=== PATIENT | male | born 1945 | race Caucasian/White ===

== ENCOUNTER 2023-11-11 12:59 | Outpatient (RCR) | payer MEDICARE, SELFPAY ==
[2023-10-14 14:44] VITALS: BP 141/71
[2023-10-14] MEDS: NUCALA 1 MG SC (14:50)
[2023-11-11 13:31] VITALS: BP 141/69
[2023-11-11] MEDS: NUCALA 1 MG SC (13:38)
== END 2023-11-12 23:59 | disposition home or self-care (01) ==
LOC: OID 12:59
PROVIDERS: ATTENDING PHYSICIAN Internal Medicine Critical Care Medicine; FAMILY PHYSICIAN Student in an Organized Health Care Education/Training Program
DX: J45.40 Moderate persistent asthma, uncomplicated (principal); J45.901 Unspecified asthma with (acute) exacerbation; J94.2 Hemothorax; R06.02 Shortness of breath; J98.4 Other disorders of lung; J44.9 Chronic obstructive pulmonary disease, unspecified; R76.8 Other specified abnormal immunological findings in serum
CPT/HCPCS: 96372; J2182

== ENCOUNTER 2023-12-09 12:56 | Outpatient (RCR) | payer MEDICARE, SELFPAY ==
[2023-12-09 13:00] VITALS: BP 135/69
[2023-12-09] MEDS: NUCALA 1 MG SC (13:18)
== END 2023-12-10 09:41 | disposition home or self-care (01) ==
LOC: OID 12:56
PROVIDERS: ATTENDING PHYSICIAN Internal Medicine Critical Care Medicine; FAMILY PHYSICIAN Student in an Organized Health Care Education/Training Program
DX: J45.40 Moderate persistent asthma, uncomplicated (principal)
CPT/HCPCS: 96372; J2182

== ENCOUNTER → 2023-12-19 12:29 | Outpatient (REF) | payer MEDICARE, SELFPAY | LOC: RAD 12:29 | PROVIDERS: ATTENDING PHYSICIAN Internal Medicine Hematology & Oncology; FAMILY PHYSICIAN Student in an Organized Health Care Education/Training Program | DX: D69.6 Thrombocytopenia, unspecified (principal); D72.819 Decreased white blood cell count, unspecified | CPT/HCPCS: 71046 ==

== ENCOUNTER 2024-01-06 12:52 | Outpatient (RCR) | payer MEDICARE, SELFPAY ==
[2024-01-06 12:58] VITALS: BP 136/72
[2024-01-06] MEDS: NUCALA 1 MG SC (13:25)
== END 2024-01-07 09:07 | disposition home or self-care (01) ==
LOC: OID 12:52
PROVIDERS: ATTENDING PHYSICIAN Internal Medicine Critical Care Medicine; FAMILY PHYSICIAN Student in an Organized Health Care Education/Training Program
DX: J45.40 Moderate persistent asthma, uncomplicated (principal)
CPT/HCPCS: 96372; J2182

== ENCOUNTER 2024-01-09 15:14 | Inpatient (IN) | payer MEDICARE, SELFPAY ==
[2024-01-09] VITALS (9 sets, daily range): BP systolic 125–158; BP diastolic 65–86; BMI 30.4; BMI 29.5
--- NOTE | 2024-01-09 11:11 | ED.GENMED ---
History of Present Illness
General
Chief Complaint: Rectal Bleeding
Time Seen by Provider: 01/09/24 10:57
Travel History
Have you had any contact with someone who has COVID-19?: No
Do you have any symptoms of coronavirus? Fever > 100 degrees, chills, cough, shortness of breath, sore throat, loss of taste or smell, muscle aches, or headache?: No
History of Present Illness
History of Present Illness:
78-year-old male with history of prior traumatic brain injury and chronic thrombocytopenia presents to the emergency department for evaluation of black-tinged emesis as well as black stool noted yesterday. notes that he had upper respiratory
tract symptoms approximate 2 weeks ago and was placed on a longer course of prednisone that was completed 1 week ago. Last night began vomiting and she noted black discoloration and several bouts. He also had black stool. After the bout of black
diarrhea he was given a single dose of Pepto-Bismol but did not continue with this morning. Patient denies any abdominal pain or fevers. Does not take any anticoagulants. Follows with oncology for borderline thrombocytopenia
Review of Systems
Review of Systems
Allergies reviewed?: Yes
All Other Systems: ROS reviewed and negative except as documented in HPI and ROS
Phy Exam
Physical Exam
Physical Exam:
GEN: Well appearing, NAD, WDWN
HEENT: Oral mucosa moist, no scleral icterus
Cardiac: Regular rate and rhythm, no murmurs
Lung: No respiratory distress, no tachypnea, lungs clear to auscultation bilaterally
Abdomen: Soft, nontender
Rectal: Brown stool in the rectal vault, heme positive
MSK: No gross deformity or injuries
Skin: Good color, no pallor or jaundice, no rashes
Neuro: AO x3, moves all extremities freely
Psych: Calm, cooperative
Course
Orders/Labs/Results
Orders:
Orders
01/09/24 11:26
Type+Screen Urgent
Complete Blood Count/With Diff Urgent
Comprehensive Metabolic Panel Urgent
Prothrombin Time Urgent
01/09/24 12:16
Pantoprazole [Protonix IV] 80 mg IV NOW STA
01/09/24 14:42
CR Abdomen - 2 Views Routine
Comment:
Reason For Exam: vomiting
01/09/24 14:55
Admit/Transfer Patient As Directed
Co-Sign Provider:
Level of Care: Inpatient admission
Assign to:: Telemetry
Physician / Group: Ghulam Foley
Diagnosis: Lower GI Bleed
Reason for Telemetry: Other
Other Reason for Telemetry: GI Bleed
Date to Stop Telemetry: 01/11/24
Time to Stop Telemetry: 11:00
Reason for Hospitalization: As above
Expected length of stay greater than two midnights?: Yes
ELOS- Estimated Length of Stay in days: 3
I certify the patient meets the requirements for IP care: Yes
01/09/24 14:58
Code Status As Directed
Resuscitation Status: Full Code
01/09/24 20:00
Pantoprazole [Protonix IV] 40 mg IV BID
01/11/24 11:00
DC Protocol for Telemetry ONCE
Abnormal Lab Results
01/09/24
11:26
RBC 4.12 L 10^6/uL
(4.70-6.10)
MCV 98.8 H fL
(80.0-94.0)
MCH 33.0 H pg
(27.0-31.0)
Plt Count 80 L 10^3/uL
(130-400)
MPV 11.6 H fL
(7.4-10.4)
Absolute Neuts (auto) 8.0 H 10^3/uL
(1.4-6.5)
Absolute Lymphs (auto) 0.1 L 10^3/uL
(1.2-3.4)
Neutrophils % 92.8 H %
(42.2-75.2)
Lymphocytes % 1.5 L %
(20.5-51.1)
PT 17.0 H Sec
(11.4-14.6)
Sodium 133 L mmol/L
(135-145)
BUN 37 H mg/dl
(9-20)
Creatinine 1.5 H mg/dL
(0.7-1.3)
Glucose 134 H mg/dl
(70-99)
Total Bilirubin 1.5 H mg/dl
(0.2-1.3)
01/09/24 11:26
01/09/24 11:26
Vital Signs
Initial and Last Documented VS:
Initial Vital Signs
Temp Pulse Resp BP Pulse Ox
97.7 F 87 18 134/84 95
01/09/24 10:33 01/09/24 10:33 01/09/24 10:33 01/09/24 10:33 01/09/24 10:33
Last Documented Vital Signs
Temp Pulse Resp BP Pulse Ox
97.7 F 76 20 144/68 94
01/09/24 10:33 01/09/24 14:15 01/09/24 14:15 01/09/24 14:00 01/09/24 14:15
MDM/Problems Addressed
MDM/Problems Addressed:
Hematemesis and melanotic stool likely on the basis of upper GI bleed, potentially gastritis/peptic ulcer disease provoked by recent prednisone usage. He appears quite clinically stable. Hemoglobin is unremarkable. Given his chronic
thrombocytopenia he is high risk for worsening bleeding if he were to be discharged thus we will admit on PPIs for close monitoring and potential GI intervention
*Critical Care Note
Total Time (30-74mins, 75-104mins- exclusive of procedures): Not Applicable
ED Attending Note
-
Portions of this chart may have been created with voice recognition software.� Occasional wrong word or��sound alike� substitutions may have occurred due to the inherent limitations of voice recognition software.
Discharge Plan
Departure
Patient Disposition: Admit
Date of Disposition: 01/09/24
Time of Disposition: 12:53
Admit to: Med/Surg
Presentation/result/management discussed w/ accepting MD/DO: Hospitalist
Discharge Problem:
Acute upper gastrointestinal bleeding, Thrombocytopenia
Interventions
Interventions:
*Risk Screen - Suicide Last Done: 01/09/24 10:33
*General Assessment Last Done: 01/09/24 10:33
*Neglect/Abuse Screening Last Done: 01/09/24 10:33
*ED COVID-19 Vaccine History Last Done: 01/09/24 11:21
VH-Lskgna-Zmmolhgeee Assessment Last Done: 01/09/24 11:24
ED- Cardiac Assessment Last Done: 01/09/24 11:24
ED- Pulmonary Assessment Last Done: 01/09/24 11:24
[2024-01-09 11:43] LABS: % Basophils 0.1 % (0-2); % Immature Granulocytes 0.3 % (0-0.5); % Lymphocytes 1.5 % (20.5-51.1); % Monocytes 5.3 % (1.7-9.3); % Neutrophils 92.8 % (42.2-75.2); Absolute Lymphocytes 0.1 10^3/uL (1.2-3.4); Absolute Monocytes 0.5 10^3/uL (0.1-0.6); Hematocrit 40.7 % (39.0-52.0); Hemoglobin 13.6 g/dL (13.0-18.0); Mean Corp Hgb Conc. 33.4 g/dL (33.0-37.0); Mean Corpuscular Volume 98.8 fL (80.0-94.0); Nucleated Red Blood Cells % 0 % (-); Red Blood Cell Count 4.12 10^6/uL (4.70-6.10); Red Cell Dist. Width 13.9 % (11.5-14.5); White Blood Cell Count 8.7 10^3/uL (4.8-10.8)
[2024-01-09 12:00] LABS: ALT (SGPT) 40 U/L (0-50); AST (SGOT) 35 U/L (17-59); Albumin 3.7 g/dl (3.5-5.0); Alkaline Phosphatase 99 U/L (38-126); Blood Urea Nitrogen 37 mg/dl (9-20); Calcium 8.8 mg/dl (8.4-10.2); Carbon Dioxide 22 mmol/L (22-30); Chloride 105 mmol/L (98-107); Estimated Creatinine Clearance 55 ml/min; Glucose 134 mg/dl (70-99); Potassium 4.1 mmol/L (3.5-5.1); Sodium 133 mmol/L (135-145); Total Bilirubin 1.5 mg/dl (0.2-1.3); Total Protein 6.6 g/dl (6.3-8.2); eGFR 47.95
[2024-01-09] MEDS: PROTONIX IV 80 MG IV (12:24)
[2024-01-09 12:29] LABS: Mean Platelet Volume 11.6 fL (7.4-10.4); Platelet Count 80 10^3/uL (130-400)
--- NOTE | 2024-01-09 14:04 | CON.GI ---
Addendum entered and electronically signed by Shant Alcaraz MD 01/09/24 17:21:
I saw and examined the patient.
The REGISTRATION MANAGER or PA's note was reviewed and I agree with the note.
Comment:
Pt is a 78 y/o with a hx of asthma with recent antibx and prednisone with an episode of dark emesis and quesitonable melena. Currently no symptoms. No hx of egd and has been gettting cologuard last negative 2 yrs ago.
abd: soft, nontender
hgb normal
impression:
?gi bleeding
thrombocytopenia
pancreatic cyst
plan:
follow hgb
PPI
if diarrhea check c.diff
can have regular diet if tolerated
outpatient f/u imaging of small pancreatic cyst
Addendum entered and electronically signed by Liz Jorge NP 01/09/24 15:06:
Elevated INR and low platelets but with normal liver imaging in May. Does admit to 1 glass of wine daily with dinner. I do no suspect cirrhosis as his low platelets are chronic with prior normal imaging.
Original Note:
Consultation
-
Date/Time Consultation Requested: 01/09/24 @ 13:38
Date/Time Consultation Performed: 01/09/24 @ 14:15
Requesting Provider: Dr. Kyle White
Performing Provider: CLIFF Mcqueen; Dr. Shant Alcaraz
Reason for Consultation: UGI bleed
Medical History
Chief Complaint / HPI
Chief Complaint: melena, coffee ground emesis
History of Present Illness:
The pt is a 78 yo male with a PMH significant for chronic thrombocytopenia, cognitive impairment, mild asthma on Nucala, depression, who presents to the ER with complaints of melena and vomiting black emesis. We are being asked to evaluate for
concern for UGI bleed. The pt is somewhat of a poor historian therefore his is at the bedside to assist with HPI. She reports that her had developed acute onset of vomiting yesterday. She notes he had 2 episodes of very dark black
appearing emesis with chunks. She notes that the second episode as she has a white carpet appeared somewhat darker red in color. He had another episode this morning which prompted ER evaluation. He denies feeling sick prior to this onset. He
denies any significant abdominal pain or distention. He notes he did have some dark stool last week but otherwise denies any melena or hematochezia. His states that he told her he had dark stool yesterday but she did not visualize this
herself. His reports that prior to this onset he did have a ravioli's with red sauce and sausage that was left over. He denies any fevers or chills. He otherwise denies any unintentional weight loss, dysphagia, odynophagia, chest pain,
shortness of breath, lightheadedness, or dizziness. He does have mild asthma and is followed by pulmonary. His notes that about 2 weeks ago he had been having an ongoing cough and saw his primary care physician who had prescribed azithromycin
and a 5-day prednisone taper which he completed. He denies use of NSAIDs or blood thinners. He denies any recent travel. He denies any history of GI bleed. He does follow with hematology for a history of chronic thrombocytopenia. Workup
revealed a mildly enlarged spleen otherwise has been unrevealing as per oncology notes. He denies any family history of colon cancer or other GI cancers or disorders, but his reports that his brother may have had colon cancer. He denies any
prior EGD or colonoscopy. Routine labs in the ER showed hgb 13.6, plt 80,000, WBC 8.7, MCV 98.8, INR 1.4, Na 133, K 4.1, BUN 37, Cr 1.5, TB 1.5, AST 35, ALT 40, alk phos 99. CIERRA per ER records showed brown heme + stool. He was given 80 mg of IV
Protonix x 1 dose, made n.p.o., and admitted for further evaluation by GI.
Past Medical History
Past Medical History: Asthma, Psychiatric (Depression) and Other (chronic thrombocytopenia, cognitive impairment)
Past Surgical History: Orthopedic (Bilateral hip replacement), Urological (UroLift) and Other (Bilateral cataract surgery October and November 2023)
Social History
Tobacco: Non-Smoker
Alcohol: Daily (1 glass of wine with dinner most days)
Drug: None
Personal:
Living: With Family
Family History
Family History: Other (Brother with colon cancer)
Allergies / Home Medications
Allergy/AdvReac Type Severity Reaction Status Date / Time
No Known Allergies Allergy Verified 01/06/24 12:58
�Medication �Instructions �Recorded
albuterol sulfate 90 mcg/actuation 1 puff inhalation R Q4HPRN PRN sob 04/18/22
aerosol inhaler
escitalopram oxalate 20 mg tablet 20 mg PO DAILY Mental 04/18/22
Health/Anxiety
fexofenadine 180 mg tablet 180 mg PO DAILY PRN allergies 04/29/23
carboxymethylcellulose sodium 0.25 1 drp BOTH EYES DAILYPRN PRN dry 01/09/24
% eye drops (TheraTears) eyes
fluticasone furoate 100 1 inh inhalation R DAILY 01/09/24
mcg-vilanterol 25 mcg/dose Lung/Breathing Issues
inhalation powder (Breo Ellipta)
maltodextrin 1 ea PO DAILYPRN PRN constipation 01/09/24
mepolizumab 100 mg/mL subcutaneous 0 mg SC QMONTH ASTHMA 01/09/24
auto-injector (Nucala)
Review of Systems
-
History Source: Patient and Family
Constitutional: Reports No Symptoms
EENT: Reports No Symptoms
Respiratory: Reports Cough
Cardiac: Reports No Symptoms
Abdomen/GI: Reports Nausea, Vomiting, Black Stools and Other (Coffee-ground emesis)
: Reports No Symptoms
Musculoskeletal: Reports No Symptoms
Skin: Reports No Symptoms
Neurological: Reports No Symptoms
Vital Signs
Temp Pulse Resp BP Pulse Ox
97.7 F 75 18 151/71 95
01/09/24 10:33 01/09/24 13:30 01/09/24 13:30 01/09/24 13:00 01/09/24 13:30
Physical Exam
Exam
General: Well Developed, Well Nourished, No Apparent Distress and Comfortable
HEENT: Normocephalic, Anicteric and Atraumatic
Respiratory: Clear
Cardiac: S1/S2 and Regular Rhythm
Breast: N/A
GI: Soft, Non Tender, Non Distended, Normal Bowel Sounds and Other (Obese abdomen)
Rectal: Other (Brown heme positive stool per ER CIERRA)
Musculoskeletal: No Edema
Skin: Warm and Dry
Neuro: Awake, Alert and Other (Forgetful)
Psych: Calm
Results
WBC 8.7 10^3/uL (4.8-10.8) 01/09/24 11:26
Hgb 13.6 g/dL (13.0-18.0) 01/09/24 11:26
Hct 40.7 % (39.0-52.0) 01/09/24 11:26
MCV 98.8 fL (80.0-94.0) H 01/09/24 11:26
Plt Count 80 10^3/uL (130-400) L 01/09/24 11:26
Absolute Neuts (auto) 8.0 10^3/uL (1.4-6.5) H 01/09/24 11:26
PT 17.0 Sec (11.4-14.6) H 01/09/24 11:26
INR 1.40 01/09/24 11:26
Sodium 133 mmol/L (135-145) L 01/09/24 11:26
Potassium 4.1 mmol/L (3.5-5.1) 01/09/24 11:26
Chloride 105 mmol/L (98-107) 01/09/24 11:26
Carbon Dioxide 22 mmol/L (22-30) 01/09/24 11:26
BUN 37 mg/dl (9-20) H 01/09/24 11:
Creatinine 1.5 mg/dL (0.7-1.3) H 01/09/24 11:
Calcium 8.8 mg/dl (8.4-10.2) 01/09/24 11:
Total Bilirubin 1.5 mg/dl (0.2-1.3) H 01/09/24 11:
AST 35 U/L (17-59) 01/09/24 11:
ALT 40 U/L (0-50) 01/09/24 11:
Alkaline Phosphatase 99 U/L (38-126) 01/09/24 11:
Diagnostic Image Results:
05/2023 US abdomen: IMPRESSION: 'Mild splenomegaly without focal lesion. Mild fusiform aneurysmal dilatation of the infrarenal abdominal aorta measuring up to 3.5 cm. Subcentimeter cystic focus within the pancreatic body. No dilatation of the
pancreatic duct. This may represent a simple cyst versus side branch intraductal papillary mucinous neoplasm (IPMN). Consider follow-up CT or MRI in 6 months to year to assess for stability. Mildly increased renal cortical echogenicity is seen in
keeping with chronic renal disease. Small bilateral simple renal cysts.'
Prior GI Procedures:
EGD: none
Colonoscopy: none; Cologuard done in 2021 was negative
Assessment / Plan
-
The pt is a 78 yo male with a PMH significant for chronic thrombocytopenia, cognitive impairment, mild asthma on Nucala, depression, who presents to the ER with complaints of melena and vomiting black emesis. We are being asked to evaluate for
concern for UGI bleed. The patient is report acute onset of dark black appearing emesis along with questionable melena after recent steroid taper. He has a history of chronic thrombocytopenia being followed by hematology. Has no history of
GI bleed. No reported use of NSAIDs or blood thinners. No prior EGD or colonoscopy. Hemoglobin on admission was stable at 13.6, with platelets of 80,000 and mildly elevated INR 1.4. Currently with no active signs of bleeding. Stool brown heme
positive on digital rectal exam in the emergency room as per the emergency room attending. He was started on PPI. He has no complaints of pain.
Problem list:
-black emesis, ?melena
-Brown heme + stool
-macrocytosis
-chronic thrombocytopenia
-recent prednisone taper
-Family history of brother with colon cancer
Other pertinent medical history:
-mild asthma
-Cognitive impairment
-Depression
Recommendations:
-Etiology of coffee-ground emesis possibly secondary to upper GI bleed with recent prednisone taper versus gastritis versus constipation versus obstructive process versus other.
--- Rectal exam showing brown stool although heme positive No prior endoscopic evaluation.
-At this time we will check an x-ray of the abdomen to rule out any obstructive process or significant stool burden to explain symptoms
-To consider endoscopic evaluation with EGD inpatient versus outpatient pending clinical course. Currently is hemodynamically stable with a normal hemoglobin and no further vomiting. Will review with Dr. Alcaraz.
-Would continue twice daily PPI IV
-If x-ray is unrevealing and he has no further vomiting, can trial clear liquid diet
-Will repeat H&H and trend
-Avoid NSAIDs and blood thinning agent
-Trend platelets, he is being followed by hematology outpatient for this and workup
-He will need outpatient imaging in regards to his findings on ultrasound in May which did show a subcentimeter possible pancreatic cyst. I did advise the patient's to discuss this with the primary care physician who can order additional
imaging.
-Also with having a brother with colon cancer he should have a colonoscopy given his first-degree relative history despite negative Cologuard 2 years ago. Given his age and cognitive impairment, can discuss further as outpatient.
Data Reviewed
-
Old Records: Reviewed
-
-
Thank you for consultation and allowing me to participate in the patient's care. Please call the ammonium nitrate neutralizer GI physician during the after hours with any questions or concerns.
--- NOTE | 2024-01-09 14:44 | HPS.HSE ---
Addendum entered and electronically signed by Ghulam Foley MD 01/09/24 22:02:
Attending Addendum-
I performed a history and physical exam of the patient and discussed his management with the resident. I reviewed the resident's note and agree with the documented findings and plan of care. Patient present with small amount of hematemesis this am
and dark stools x 2 days. recently started on steroids for asthma exacerbation. patient seen with present. Full 12 point ROS reviewed and negative except as documented. GEN-NAD, Heart- RRR lungs clear abd soft LE no edema Shauna:
# Upper GI Bleed- start PPI BID, GI consult GB score-4, NPO, IVF cbc q 12 hours
# Hypovolemic Hyponatremia- start IVF repeat BMP in am
# CKD 3a- baseline cr @ 1.5, repeat BMP in am
# Chronic Thrombocytopenia- from nucala possibly, f/u Dr. Mtz as OP, repeat CBC in am
# Asthma- cont albuterol nebs prn
# Depression- cont meds
Time spent coordinating care, review of plan of care with resident, review of outside records, med rec, consults, notes, labs, rads, d/w nursing - 75 mins
Original Note:
Family Physician
-
Family Physician: France Osullivan MD
Chief Complaint
-
GI bleed
History of Present Illness
78-year-old male with a past medical history of prior traumatic brain injury, chronic thrombocytopenia, BPH, mild cognitive impairment presents to the emergency department complaining of melena and vomiting black emesis. Patient reports
blood-tinged emesis 2 nights ago. He had an episode this morning, hence decided to come into the ER for evaluation. Patient reports he has been having hiccups consistently for the past week before episode of emesis. Patient also reports bloody
diarrhea that started 2 days ago also. He reports episode of dark stools for a total of 4 times before presentation today. Yesterday he went to his local pharmacy to buy Pepto-Bismol for dark stools, but no improvement. He has had a total of 8
episodes since presentation. He denies abdominal pain, fever. He he notes that he symptoms of URI 2 weeks ago and saw his primary care provider 12/26 who placed him on a course of oral prednisone 2 tabs twice daily for a total of 5 days. He
completed the course of prednisone a week ago. He had a Cologuard stool test in February 2022, with no history of any colonic polyps. He denies any hospitalization in the past year, except cataract surgery done October 2023. He denies any sick
contacts, denies any changes to diet, he denies weight loss. He does not take NSAIDs or anticoagulants. The only change in medications over the past 1 month has been addition of prednisone. He reports this issue has not occurred in the past and
this is the first time.
Medical History
Past Medical History
Past Medical History: Reports Other (Chronic thrombocytopenia-he is following his oncologist for this, erectile dysfunction, elevated PSA, BPH with lower urinary tract symptoms, mild cognitive impairment, history of depression, CKD 3, asthma,
degenerative lumbar spinal stenosis, history of abdominal aortic aneurysm)
Past Surgical History: Reports Other (Cataract surgery 12/06, left hip replacement 04/19/2019, right hip replacement 05/09/2018)
Social History
Tobacco: Non-smoker
Alcohol: Occasional
Drug: None
Living: With Family
Employment: Retired
Family History
Family History: Not pertinent
Allergies / Home Medications
Allergies reflects when Allergies were last updated in [facility].
Home Medications with original date entered in [facility]
Allergy/Medication List:
Allergies
Allergy/AdvReac Type Severity Reaction Status Date / Time
No Known Allergies Allergy Verified 01/06/24 12:58
Home Medications
albuterol sulfate 90 mcg/actuation aerosol inhaler 1 puff inhalation R Q4HPRN PRN sob 04/18/22
escitalopram oxalate 20 mg tablet 20 mg PO DAILY Mental Health/Anxiety 04/18/22
fexofenadine 180 mg tablet 180 mg PO DAILY PRN allergies 04/29/23
carboxymethylcellulose sodium 0.25 % eye drops (TheraTears) 1 drp BOTH EYES DAILYPRN PRN dry eyes 01/09/24
fluticasone furoate 100 mcg-vilanterol 25 mcg/dose inhalation powder (Breo Ellipta) 1 inh inhalation R DAILY Lung/Breathing Issues 01/09/24
maltodextrin 1 ea PO DAILYPRN PRN constipation 01/09/24
mepolizumab 100 mg/mL subcutaneous auto-injector (Nucala) 0 mg SC QMONTH ASTHMA 01/09/24
Review of Systems
-
A 12 point ROS was completed and negative except as noted: Yes
Constitutional: Denies Fever or Weight Loss
Respiratory: Denies Cough or Trouble Breathing
Cardiac: Denies Chest Pain
Abdomen/GI: Reports Vomiting (Bloody), Bloody Stools and Black Stools; Denies Abdominal Pain or Nausea
: Reports No Symptoms
Musculoskeletal: Reports No Symptoms
Skin: Reports No Symptoms
Neurological: Reports No Symptoms
Endocrine: Reports No Symptoms
Hematologic/Lymphatic: Reports Bleeding
Psych: Reports No Symptoms
Physical Exam
Vital Signs
Vital Signs
Temp Pulse Resp BP Pulse Ox
97.7 F 76 20 144/68 94
01/09/24 10:33 01/09/24 14:15 01/09/24 14:15 01/09/24 14:00 01/09/24 14:15
Physical Exam
General: Well Developed and No Apparent Distress
HEENT: NormoCephalic and Anicteric
Respiratory: Clear; No Wheezes, Rales or Rhonchi
Cardiac: S1/S2 and Regular Rhythm; No Murmur
GI: Soft, Non Tender, Non Distended and Normal Bowel Sounds
Rectal: Hem Positive
Musculoskeletal: No Clubbing, No Cyanosis and No Edema
Skin: Warm
Neuro: Awake, Alert, Oriented and AO x 3
Psych: Calm
Laboratory Results
-
01/09/24 11:26
01/09/24 11:26
Laboratory Results
PT 17.0 Sec (11.4-14.6) H 01/09/24 11:26
INR 1.40 01/09/24 11:26
Total Bilirubin 1.5 mg/dl (0.2-1.3) H 01/09/24 11:
AST 35 U/L (17-59) 01/09/24 11:
ALT 40 U/L (0-50) 01/09/24 11:
Alkaline Phosphatase 99 U/L (38-126) 01/09/24 11:
Data Reviewed
-
Lab Data: Labs Reviewed by me and Discussed with Physician
Impression/Plan
-
Assessment
#Upper GI bleed possibly secondary to recent prednisone use
#Hypovolemic hyponatremia
#Thrombocytopenia
#History of asthma
#depression
#DINORAH on CKD
Plan
Upper GI bleed possibly secondary to recent prednisone use
Admitted to telemetry
Jeannine-Blatchford bleeding score 4.
Consult GI
Keep n.p.o.
PPI IV twice daily
Avoid NSAIDs on any blood thinning agents
Monitor H&H and trend
Monitor vitals
Hypovolemic hyponatremia
Start IV fluids
Monitor BMP
# DINORAH on CKD III
SCre 1.5, baseline CRE 1.46
IV fluids
Monitor BMP
Thrombocytopenia
Patient with a history of chronic thrombocytopenia
Is being followed by hematology outpatient
Reviewed eCW, notes indicates thrombocytopenia might be due to his Nucala therapy
Monitor platelets
Depression
Continue escitalopram
Asthma
Start DuoNebs as needed
Hold home meds
DVT prophylaxis; SCD
CODE STATUS; full code
[2024-01-09] MEDS: NSS 1000 IV (16:59)
--- NOTE | 2024-01-09 17:00 | PTCARENOTE ---
Pt admitted into room 411-2. Pt ambulated with x1 assist from stretcher to bed. VSS. Tele showing NSR. AAOx2. Pt oriented to room and has call rios within reach. Pt denies pain or nausea. Pt's at bedside.
--- NOTE | 2024-01-09 17:21 | W.PN.UPDATE ---
Update Note
Progress Note Update
for billing purposes only
[2024-01-09 18:06] LABS: Direct Bilirubin 0.2 mg/dl (0.0-0.4)
[2024-01-09 19:36] LABS: Hematocrit 36.5 % (39.0-52.0); Hemoglobin 12.5 g/dL (13.0-18.0)
[2024-01-09] MEDS: PROTONIX IV 40 MG IV (20:38)
[2024-01-10 03:50] VITALS: BP 158/81
[2024-01-10] MEDS: NSS 1000 IV ×2 (05:59→18:18)
[2024-01-10 07:41] LABS: Hematocrit 40.6 % (39.0-52.0); Hemoglobin 13.4 g/dL (13.0-18.0); Mean Corpuscular Hgb 32.8 pg (27.0-31.0); Mean Corpuscular Volume 99.5 fL (80.0-94.0); Mean Platelet Volume 11.6 fL (7.4-10.4); Platelet Count 68 10^3/uL (130-400); Red Blood Cell Count 4.08 10^6/uL (4.70-6.10); Red Cell Dist. Width 14.2 % (11.5-14.5); White Blood Cell Count 6.6 10^3/uL (4.8-10.8)
[2024-01-10 07:45] VITALS: BP 177/86
[2024-01-10 08:02] LABS: ALT (SGPT) 38 U/L (0-50); AST (SGOT) 33 U/L (17-59); Albumin 3.7 g/dl (3.5-5.0); Alkaline Phosphatase 89 U/L (38-126); Blood Urea Nitrogen 27 mg/dl (9-20); Carbon Dioxide 24 mmol/L (22-30); Chloride 107 mmol/L (98-107); Estimated Creatinine Clearance 49 ml/min; Glucose 102 mg/dl (70-99); Potassium 4.7 mmol/L (3.5-5.1); Sodium 135 mmol/L (135-145); Total Bilirubin 1.4 mg/dl (0.2-1.3); Total Protein 6.6 g/dl (6.3-8.2); eGFR 47.95
[2024-01-10] MEDS: LEXAPRO 20 MG PO (09:46)
[2024-01-10] MEDS: PROTONIX IV 40 MG IV ×2 (09:48→19:50)
--- NOTE | 2024-01-10 13:23 | W.PN.GI.CBS2 ---
Today's Communication / Plan
-
regular diet
Assessment / Plan
-
The pt is a 78 yo male with a PMH significant for chronic thrombocytopenia, cognitive impairment, mild asthma on Nucala, depression, who presents to the ER with complaints of melena and vomiting black emesis. We are being asked to evaluate for
concern for UGI bleed. The patient is report acute onset of dark black appearing emesis along with questionable melena after recent steroid taper. He has a history of chronic thrombocytopenia being followed by hematology. Has no history of
GI bleed. No reported use of NSAIDs or blood thinners. No prior EGD or colonoscopy. Hemoglobin on admission was stable at 13.6, with platelets of 80,000 and mildly elevated INR 1.4. Currently with no active signs of bleeding. Stool brown heme
positive on digital rectal exam in the emergency room as per the emergency room attending. He was started on PPI. He has no complaints of pain.
Problem list:
-black emesis, ?melena
-Brown heme + stool
-macrocytosis
-chronic thrombocytopenia
-recent prednisone taper
-Family history of brother with colon cancer
Other pertinent medical history:
-mild asthma
-Cognitive impairment
-Depression
Recommendations:
- hgb normal
- no witnessed episodes of vomiting or diarrhea
- continue PPI
- stool studies if diarrhea
- regular diet
will monitor
Subjective
Subjective
Date of Service: January 10, 2024
Pt w/o any n/v or diarrhea (as per nurse)
Pt confused
Objective
Data Reviewed
Laboratory Data:
Laboratory Results
01/10/24 07:25
01/10/24 07:25
Laboratory Results
PT 17.0 Sec (11.4-14.6) H 01/09/24 11:26
INR 1.40 01/09/24 11:26
Total Bilirubin 1.4 mg/dl (0.2-1.3) H 01/10/24 07:25
AST 33 U/L (17-59) 01/10/24 07:25
ALT 38 U/L (0-50) 01/10/24 07:25
Alkaline Phosphatase 89 U/L (38-126) 01/10/24 07:25
Vital Signs and I&O:
Vital Signs
Temp Pulse Resp BP Pulse Ox
98 F 88 18 177/86 97
01/10/24 07:45 01/10/24 07:45 01/10/24 07:45 01/10/24 07:45 01/10/24 07:45
I&O
01/09/24 01/10/24 01/11/24
06:59 06:59 06:59
Intake Total 330 / 330 960 / 960
Output Total 725 / 725
Balance 330 / 330 235 / 235
Physical Exam
Physical Exam
GI: Soft, Non Distended and Non Tender
[2024-01-10 13:44] LABS: Urine Albumin Trace (Neg - Trace); Urine Bilirubin Negative (Negative); Urine Character Clear (Clear); Urine Color Yellow; Urine Glucose Negative (Negative); Urine Ketone Negative (Negative); Urine Leukocyte 1+ (Negative); Urine Nitrite Negative (Negative); Urine Occult Blood 1+ (Negative); Urine Specific Gravity 1.015 (<1.030); Urine Urobilinogen Negative (Neg - 1+)
[2024-01-10 13:55] LABS: Urine Bacteria Few (Negative); Urine White Cell 16-20 /HPF (0-5)
--- NOTE | 2024-01-10 14:22 | W.PN.HOSP.TC ---
Today's Communication/Plan
-
monitor cbc
reg diet
ppi iv bid
start abx, f/u urine cultures
restart ICS/LABA
Assessment / Plan
Assessment / Plan
Physical Exam
General: Well Developed and No Apparent Distress;
HEENT: NormoCephalic and Anicteric
Respiratory: Clear; No Wheezes, Rales or Rhonchi
Cardiac: S1/S2 and Regular Rhythm; No Murmur
GI: Soft, Non Tender, Non Distended and Normal Bowel Sounds
Musculoskeletal: No Clubbing, No Cyanosis and No Edema
Skin: Warm
Neuro: Awake, Alert, Oriented andAAOx1-2
Psych: Calm
#black emesis, ?melena w/ recent steroid taper
#Hypovolemic hyponatremia
#Chronic Thrombocytopenia
#History of asthma
#depression
#?Dementia
#DINORAH on CKD
#UTI
Plan
Upper GI bleed possibly secondary to recent prednisone use
Admitted to telemetry
Jeannine-Blatchford bleeding score 4.
Consult GI
Regular Diet
PPI IV twice daily
Avoid NSAIDs on any blood thinning agents
Monitor H&H and trend
Monitor vitals
Acute on chronic metabolic Encephalopathy
-possible hx of dementia although UA positive making UTI related AMS more likely than hospital acquired delirium
-treat UTI
-CT head neg
UTI
-start Ceftriaxone
-F/u cultures
Hypovolemic hyponatremia
IV fluids
Monitor BMP
#CKD III
SCre 1.5, baseline CRE 1.46
IV fluids
Monitor BMP
Thrombocytopenia
Patient with a history of chronic thrombocytopenia
Is being followed by hematology outpatient
Reviewed eCW, notes indicates thrombocytopenia might be due to his Nucala therapy
Monitor platelets
Depression
Continue escitalopram
Asthma
Start DuoNebs as needed
Hold home meds
-start on symbicort while inpatient - dc back on breo ellipta outpatient
DVT prophylaxis; SCD
CODE STATUS; full code
Total time spent on today's encounter was 50 minutes which included time spent in counseling the patient/family regarding diagnosis and treatment plan as listed above, goals of care, and symptom management. Case was discussed with nursing staff,
specialists, and care coordinators/case management. All labs and imaging personally reviewed by me. Remainder the time spent in detailed review of previous records, lab data, imaging, and other medical provider documentation.
Anticipated Discharge: > 48 hours
Subjective/Interval History
-
Date of Service: January 10, 2024
altered this am
Objective Data
-
Labs:
Laboratory Results
01/10/24
07:25
WBC 6.6
Hgb 13.4
Hct 40.6
Plt Count 68 L
Sodium 135
Potassium 4.7
Chloride 107
Carbon Dioxide 24
BUN 27 H
Creatinine 1.5 H
Glucose 102 H
Calcium 9.0
Total Bilirubin 1.4 H
AST 33
ALT 38
Alkaline Phosphatase 89
Vital Signs:
Vital Signs
Temp Pulse Resp BP Pulse Ox
98 F 88 18 177/86 97
01/10/24 07:45 01/10/24 07:45 01/10/24 07:45 01/10/24 07:45 01/10/24 07:45
I&O
01/09/24 01/10/24 01/11/24
06:59 06:59 06:59
Intake Total 330 / 330 960 / 960
Output Total 725 / 725
Balance 330 / 330 235 / 235
Review of Systems
-
History Source: Patient
All other systems: Not reviewed unless documented
Data Reviewed
-
Diagnostic Radiology: Image personally visualized and interpreted and Report Reviewed by me
CT Scan: Image personally visualized and interpreted and Report Reviewed by me
Labs: Labs Reviewed by me
[2024-01-10 15:00] VITALS: BP 172/90
[2024-01-10] MEDS: STERILE WATER FOR INJECTION 10 ML IV (18:17)
[2024-01-10] MEDS: ROCEPHIN 1000 MG IV (18:18)
[2024-01-10 19:50] VITALS: BP 159/83
[2024-01-10] MEDS: TYLENOL 1000 MG PO (20:37)
[2024-01-10] MEDS: SYMBICORT 160/4.5 MCG INHALER 2 PUFF INH (20:40)
[2024-01-10 23:55] VITALS: BP 148/71
[2024-01-11] VITALS (7 sets, daily range): BP systolic 91–176; BP diastolic 50–90
[2024-01-11] MEDS: SYMBICORT 160/4.5 MCG INHALER 2 PUFF INH ×2 (07:38→19:39)
[2024-01-11] MEDS: LEXAPRO 20 MG PO (07:57)
[2024-01-11] MEDS: PROTONIX IV 40 MG IV ×2 (07:58→19:47)
[2024-01-11] MEDS: NSS (PRESERVATIVE FREE) 10 ML IV ×2 (08:02→19:44)
[2024-01-11 08:18] LABS: Hematocrit 38.7 % (39.0-52.0); Hemoglobin 12.8 g/dL (13.0-18.0); Mean Corp Hgb Conc. 33.1 g/dL (33.0-37.0); Mean Corpuscular Hgb 32.5 pg (27.0-31.0); Mean Corpuscular Volume 98.2 fL (80.0-94.0); Mean Platelet Volume 11.9 fL (7.4-10.4); Platelet Count 50 10^3/uL (130-400); Red Blood Cell Count 3.94 10^6/uL (4.70-6.10); White Blood Cell Count 2.7 10^3/uL (4.8-10.8)
[2024-01-11 08:31] LABS: Blood Urea Nitrogen 22 mg/dl (9-20); Carbon Dioxide 25 mmol/L (22-30); Chloride 103 mmol/L (98-107); Estimated Creatinine Clearance 56 ml/min; Glucose 89 mg/dl (70-99); Sodium 135 mmol/L (135-145); eGFR 56.93
[2024-01-11 10:14] LABS: COVID-19 Antigen Negative (Negative)
--- NOTE | 2024-01-11 10:16 | W.PN.GI.CBS2 ---
Today's Communication / Plan
-
stable, no inpatient intervention
Assessment / Plan
-
The pt is a 78 yo male with a PMH significant for chronic thrombocytopenia, cognitive impairment, mild asthma on Nucala, depression, who presents to the ER with complaints of melena and vomiting black emesis. We are being asked to evaluate for
concern for UGI bleed. The patient is report acute onset of dark black appearing emesis along with questionable melena after recent steroid taper. He has a history of chronic thrombocytopenia being followed by hematology. Has no history of
GI bleed. No reported use of NSAIDs or blood thinners. No prior EGD or colonoscopy. Hemoglobin on admission was stable at 13.6, with platelets of 80,000 and mildly elevated INR 1.4. Currently with no active signs of bleeding. Stool brown heme
positive on digital rectal exam in the emergency room as per the emergency room attending. He was started on PPI. He has no complaints of pain.
Problem list:
-black emesis, ?melena
-Brown heme + stool
-macrocytosis
-chronic thrombocytopenia
-recent prednisone taper
-Family history of brother with colon cancer
Other pertinent medical history:
-mild asthma
-Cognitive impairment
-Depression
Recommendations:
- hgb remains stable
- no witnessed episodes of vomiting or diarrhea
- eating regular food
- continue PPI
no active inpatient issue will sign off call with questions
Subjective
Subjective
Date of Service: January 11, 2024
Pt with no abd pain, n/v, diarrhea per nurse (checked with overnight nurse)
Objective
Data Reviewed
Laboratory Data:
Laboratory Results
01/11/24 07:08
01/11/24 07:08
Laboratory Results
PT 17.0 Sec (11.4-14.6) H 01/09/24 11:26
INR 1.40 01/09/24 11:26
Total Bilirubin 1.4 mg/dl (0.2-1.3) H 01/10/24 07:25
AST 33 U/L (17-59) 01/10/24 07:25
ALT 38 U/L (0-50) 01/10/24 07:25
Alkaline Phosphatase 89 U/L (38-126) 01/10/24 07:25
Vital Signs and I&O:
Vital Signs
Temp Pulse Resp BP Pulse Ox
98.4 F 74 16 176/90 95
01/11/24 07:30 01/11/24 07:43 01/11/24 07:43 01/11/24 07:30 01/11/24 08:10
I&O
01/10/24 01/11/24 01/12/24
06:59 06:59 06:59
Intake Total 330 / 330 2400 / 2400
Output Total 1655 / 1655
Balance 330 / 330 745 / 745
Physical Exam
Physical Exam
GI: Soft, Non Distended and Non Tender
--- NOTE | 2024-01-11 13:39 | W.PN.HOSP.TC ---
Today's Communication/Plan
-
f/u cultures
cont abx
monitor mental status
Assessment / Plan
Assessment / Plan
Physical Exam
General: Well Developed and No Apparent Distress;
HEENT: NormoCephalic and Anicteric
Respiratory: Clear; No Wheezes, Rales or Rhonchi
Cardiac: S1/S2 and Regular Rhythm; No Murmur
GI: Soft, Non Tender, Non Distended and Normal Bowel Sounds
Musculoskeletal: No Clubbing, No Cyanosis and No Edema
Skin: Warm
Neuro: Awake, Alert, Oriented andAAOx1-2
Psych: Calm
#black emesis, ?melena w/ recent steroid taper
#Hypovolemic hyponatremia
#Chronic Thrombocytopenia
#History of asthma
#depression
#?Dementia
#DINORAH on CKD
#UTI
#Sepsis
#Acute on chronic metabolic encephalopathy
Plan
#Black emesis, ?melena
Admitted to telemetry
Jeannine-Blatchford bleeding score 4.
Consult GI - no acute intervention at this time
Regular Diet
PPI IV twice daily
Avoid NSAIDs on any blood thinning agents
Monitor H&H and trend
Monitor vitals
#Acute on chronic metabolic Encephalopathy
-possible hx of dementia although UA positive making Sepsis associated brain dysfunction more likely than hospital acquired delirium
-improved today
-treat UTI
-CT head neg
#Severe Sepsis
-UTI
-start Ceftriaxone
-F/u cultures, including blood cultures due febrile episode
-COVID, flu negative
#Hypovolemic hyponatremia
IV fluids
Monitor BMP
#CKD III
SCre 1.5, baseline CRE 1.46
IV fluids
Monitor BMP
#Pancytopenia
#Thrombocytopenia
Patient with a history of chronic thrombocytopenia
Is being followed by hematology outpatient
Reviewed eCW, notes indicates thrombocytopenia might be due to his Nucala therapy
Monitor platelets
-worsened with sepsis, ctm
#Depression
Continue escitalopram
#Asthma
Start DuoNebs as needed
Hold home meds
-start on symbicort while inpatient - dc back on breo ellipta outpatient
DVT prophylaxis; SCD due to thrombocytopenia
CODE STATUS; full code
Anticipated Discharge: 24 - 48 hours
Subjective/Interval History
-
Date of Service: January 11, 2024
mental status greatly improved today
spiked temp last evening
Objective Data
-
Labs:
Laboratory Results
01/11/24
07:08
WBC 2.7 L
Hgb 12.8 L
Hct 38.7 L
Plt Count 50 L D
Sodium 135
Potassium 4.0
Chloride 103
Carbon Dioxide 25
BUN 22 H
Creatinine 1.3
Glucose 89
Calcium 9.0
Vital Signs:
Vital Signs
Temp Pulse Resp BP Pulse Ox
97.8 F 75 18 91/50 96
01/11/24 11:30 01/11/24 11:30 01/11/24 11:30 01/11/24 11:30 01/11/24 11:30
I&O
01/10/24 01/11/24 01/12/24
06:59 06:59 06:59
Intake Total 330 / 330 2400 / 2400
Output Total 1655 / 1655
Balance 330 / 330 745 / 745
Review of Systems
-
History Source: Patient
All other systems: Not reviewed unless documented
Data Reviewed
-
Diagnostic Radiology: Image personally visualized and interpreted and Report Reviewed by me
CT Scan: Image personally visualized and interpreted and Report Reviewed by me
Labs: Labs Reviewed by me
--- NOTE | 2024-01-11 14:21 | CM ---
Met with at the bedside; initial assessment completed
Pharmacy verified: [facility]
Patient OOB in chair; asleep, unable to assess mental status; chart reviewed; per nursing assessment patient was confused this morning
reported that she and her live in split level home; 0 steps to enter- 4-6 steps between floors; full bath on the ground floor with stall shower and full bath on 2nd floor has tub w/shower. stated that uses bath with stall
shower
PLOF: reported that patient has Asthma, uses an inhaler; he was independent with ADLs, ambulation and stairs. Currently going to outpatient physical therapy; Drives
SNF/Rehab/Home Care utilization history: none
Transportation: will transport home
Plan: discharge plan to be determined pending hospital course; PT/OT evaluation pending; CM will continue to follow and support discharge needs when determined
[2024-01-11] MEDS: FLUSH (NSS) 1 FLUSH IV (15:39)
[2024-01-11] MEDS: STERILE WATER FOR INJECTION 10 ML IV (15:39)
[2024-01-11] MEDS: ROCEPHIN 1000 MG IV (15:39)
[2024-01-12 03:16] VITALS: BP 135/66
[2024-01-12] MEDS: SYMBICORT 160/4.5 MCG INHALER 2 PUFF INH ×2 (07:36→20:17)
[2024-01-12 08:37] VITALS: BP 156/74
[2024-01-12 08:49] LABS: Hematocrit 37.8 % (39.0-52.0); Hemoglobin 12.8 g/dL (13.0-18.0); Mean Corp Hgb Conc. 33.9 g/dL (33.0-37.0); Mean Corpuscular Hgb 33.1 pg (27.0-31.0); Mean Corpuscular Volume 97.7 fL (80.0-94.0); Mean Platelet Volume 10.8 fL (7.4-10.4); Platelet Count 47 10^3/uL (130-400); Red Blood Cell Count 3.87 10^6/uL (4.70-6.10); White Blood Cell Count 2.6 10^3/uL (4.8-10.8)
[2024-01-12] MEDS: PROTONIX IV 40 MG IV ×2 (08:52→19:36)
[2024-01-12] MEDS: LEXAPRO 20 MG PO (08:52)
[2024-01-12] MEDS: NSS (PRESERVATIVE FREE) 10 ML IV ×2 (08:53→19:35)
[2024-01-12] MEDS: FLUSH (NSS) 1 FLUSH IV ×2 (08:53→15:50)
[2024-01-12 09:31] LABS: ALT (SGPT) 38 U/L (0-50); AST (SGOT) 43 U/L (17-59); Albumin 3.2 g/dl (3.5-5.0); Alkaline Phosphatase 90 U/L (38-126); Blood Urea Nitrogen 22 mg/dl (9-20); Calcium 8.9 mg/dl (8.4-10.2); Carbon Dioxide 26 mmol/L (22-30); Chloride 102 mmol/L (98-107); Estimated Creatinine Clearance 52 ml/min; Glucose 102 mg/dl (70-99); Potassium 3.7 mmol/L (3.5-5.1); Sodium 135 mmol/L (135-145); Total Bilirubin 1.1 mg/dl (0.2-1.3); Total Protein 5.9 g/dl (6.3-8.2); eGFR 52.09
--- NOTE | 2024-01-12 10:58 | W.PN.HOSP.TC ---
Addendum entered and electronically signed by Ghulam Foley MD 01/12/24 20:57:
Attending Addendum-
I saw and evaluated the patient. I reviewed the resident�s note and agree with findings and plan as documented in the resident�s note. patient seen with present. Had CIMS over weekend and found to have UTI. Still feels fatigued and wants to go
home. Poor historian due to dementia. per had brown stool this am no further hematemesis. Full 12 point ROS reviewed and negative except as documented-limited due to dementia. GEN-NAD, Heart- RRR lungs clear abd soft LE no edema Neuro AAO x 2
Plan:
# Upper GI Bleed- cont PPI BID, GI on board Hb stable no plan for scopes
# Sepsis secondary to UTI with Leukopenia- enterococcus/non VRE, cont rocephin for now, transition to PO abx on DC check CBC in am
# Acute Delirium- infectious, resolving, cont to monitor
# Hypovolemic Hyponatremia- start IVF repeat BMP in am
# CKD 3a- baseline cr @ 1.5, repeat BMP in am
# Chronic Thrombocytopenia- worsening, from nucala possibly, f/u Dr. Mtz as OP, repeat CBC in am
# Asthma- cont albuterol nebs prn
# Depression- cont meds
Time spent coordinating care, review of plan of care with resident, review of outside records, med rec, consults, notes, labs, rads, d/w nursing and - 53 mins
Original Note:
Today's Communication/Plan
-
see a/p
Adjust antibiotics based on cultures.
Assessment / Plan
Assessment / Plan
#black emesis, ?melena w/ recent steroid taper
#Hypovolemic hyponatremia
#Chronic Thrombocytopenia
#History of asthma
#depression
#Dementia
#DINORAH on CKD
#UTI
#Sepsis
#Acute on chronic metabolic encephalopathy
Plan
#Black emesis, ?melena
Admitted to telemetry
Jeannine-Blatchford bleeding score 4.
Consult GI - no acute intervention at this time
Regular Diet
PPI IV twice daily
Avoid NSAIDs on any blood thinning agents
Monitor H&H and trend
Monitor vitals
#Acute on chronic metabolic Encephalopathy possibly secondary to history of dementia vs UTI
-CT scan of the head unremarkable
-Started on antibiotics for UTI
-Improved, patient back to baseline
#Severe Sepsis secondary to UTI
-UTI
-Started on ceftriaxone, will adjust antibiotics based on cultures.
-Urine culture positive for Enterococcus faecalis, blood cultures pending
-COVID, flu negative
#Hypovolemic hyponatremia
Improved on IV fluids, Na today-135
Monitor BMP
#CKD III
SCre 1.5, baseline CRE 1.46
Monitor BMP
#Pancytopenia
#Thrombocytopenia
Patient with a history of chronic thrombocytopenia
Is being followed by hematology outpatient
Reviewed eCW, notes indicates thrombocytopenia might be due to his Nucala therapy
Monitor platelets
worsened with sepsis, continue to monitor
#Depression
Continue escitalopram
#Asthma
Start DuoNebs as needed
Hold home meds
-start on symbicort while inpatient - dc back on [facility] outpatient
DVT prophylaxis; SCD
CODE STATUS; full code
Anticipated Discharge: 24 - 48 hours
Subjective/Interval History
-
Discussed the patient at bed. Patient denies emesis, melena. His mental status has greatly improved. He denies fever or chills.
Objective Data
-
Labs:
Laboratory Results
01/12/24
07:59
WBC 2.6 L
Hgb 12.8 L
Hct 37.8 L
Plt Count 47 L
Sodium 135
Potassium 3.7
Chloride 102
Carbon Dioxide 26
BUN 22 H
Creatinine 1.4 H
Glucose 102 H
Calcium 8.9
Total Bilirubin 1.1
AST 43
ALT 38
Alkaline Phosphatase 90
Vital Signs:
Vital Signs
Temp Pulse Resp BP Pulse Ox
97.5 F 66 18 156/74 96
01/12/24 08:37 01/12/24 08:37 01/12/24 08:37 01/12/24 08:37 01/12/24 08:37
I&O
01/11/24 01/12/24 01/13/24
06:59 06:59 06:59
Intake Total 2400 / 2400 480 / 480
Output Total 1655 / 1655 900 / 900 250 / 250
Balance 745 / 745 -420 / -420 -250 / -250
Review of Systems
-
All other systems: Reviewed and negative (Except as documented)
Physical Exam
-
General: Well Developed and No Apparent Distress
HEENT: Normocephalic and Anicteric
Respiratory: Clear to Auscultation; Negative Wheezes, Rales or Rhonchi
Cardiac: Regular Rhythm and S1/S2
GI: Soft, Nontender, Nondistended and Normal Bowel Sounds
Musculoskeletal: No Clubbing, No Cyanosis and No Edema
Skin: Warm
Neuro: Awake, Alert, Oriented and AO x 3
Psych: Calm
Data Reviewed
-
Labs: Labs Reviewed by me
--- NOTE | 2024-01-12 11:00 | CM ---
Patient seen with , reports no new concerns. CM will continue to follow for discharge planning needs, will watch for VN needs.
Plan; home with , watch for VN needs.
[2024-01-12 11:33] VITALS: BP 116/60
[2024-01-12] MEDS: ROCEPHIN 1000 MG IV (15:49)
[2024-01-12] MEDS: STERILE WATER FOR INJECTION 10 ML IV (15:50)
[2024-01-12 15:59] VITALS: BP 121/54
--- NOTE | 2024-01-12 16:04 | PTCARENOTE ---
Pt AAO x3, sl forgetful at times/[place]. ARGUETA well, OOB to BR/in chair with assist x1/rolling walker, zachary well. VSS. Telemetry:NSR. On room air- pulse ox 98%, no SOB noted. Abd soft, rounded, zachary PO well. Voiding in BR/urinal without difficulty.
Resting in chair at present, no c/o; at bedside. Will continue to monitor.
[2024-01-12 19:40] VITALS: BP 138/65
[2024-01-12 23:34] VITALS: BP 167/78
[2024-01-13 03:16] VITALS: BP 146/76
[2024-01-13 06:05] LABS: Hematocrit 35.7 % (39.0-52.0); Mean Corp Hgb Conc. 33.6 g/dL (33.0-37.0); Mean Corpuscular Hgb 32.4 pg (27.0-31.0); Mean Corpuscular Volume 96.5 fL (80.0-94.0); Platelet Count 53 10^3/uL (130-400); Red Cell Dist. Width 13.9 % (11.5-14.5); White Blood Cell Count 2.6 10^3/uL (4.8-10.8)
[2024-01-13 06:34] LABS: Blood Urea Nitrogen 23 mg/dl (9-20); Calcium 8.7 mg/dl (8.4-10.2); Carbon Dioxide 27 mmol/L (22-30); Chloride 106 mmol/L (98-107); Estimated Creatinine Clearance 49 ml/min; Glucose 100 mg/dl (70-99); Potassium 3.9 mmol/L (3.5-5.1); Sodium 136 mmol/L (135-145); eGFR 47.95
[2024-01-13] MEDS: SYMBICORT 160/4.5 MCG INHALER 2 PUFF INH (07:20)
[2024-01-13 07:45] VITALS: BP 184/89
[2024-01-13] MEDS: LEXAPRO 20 MG PO (09:09)
[2024-01-13] MEDS: PROTONIX IV 40 MG IV (09:09)
[2024-01-13] MEDS: NSS (PRESERVATIVE FREE) 10 ML IV (09:10)
--- NOTE | 2024-01-13 09:49 | W.PN.HOSP.TC ---
Today's Communication/Plan
-
Discharge home with oral antibiotics
Discharge home with Flomax
Follow-up with PCP
Assessment / Plan
Assessment / Plan
# Upper GI bleed secondary to recent steroid taper.
#Hypovolemic hyponatremia
#Chronic Thrombocytopenia
#History of asthma
#depression
#Dementia
#DINORAH on CKD
#UTI
#Sepsis
#Acute on chronic metabolic encephalopathy
Plan
#Upper GI bleed secondary to recent steroid taper
Admitted to telemetry
[place]-Blatchford bleeding score 4.
Consult GI - no acute intervention at this time
Regular Diet
PPI IV twice daily
Avoid NSAIDs on any blood thinning agents
Monitor H&H and trend
Monitor vitals
#Acute on chronic metabolic Encephalopathy possibly secondary to history of dementia vs UTI
-CT scan of the head unremarkable
-Started on antibiotics for UTI
-Improved, patient back to baseline
#Severe Sepsis secondary to UTI
-UTI
-Started on ceftriaxone, will adjust antibiotics based on cultures.
-Urine culture positive for Enterococcus faecalis, blood cultures pending
-COVID, flu negative
#Hypovolemic hyponatremia
Improved on IV fluids, Na today-136
Monitor BMP
#CKD III
SCre 1.5, baseline CRE 1.46
Monitor BMP
#Pancytopenia
#Thrombocytopenia
Patient with a history of chronic thrombocytopenia
Is being followed by hematology outpatient
Reviewed eCW, notes indicates thrombocytopenia might be due to his Nucala therapy
Monitor platelets
worsened with sepsis, continue to monitor
#Depression
Continue escitalopram
#Asthma
Start DuoNebs as needed
Hold home meds
-start on symbicort while inpatient - dc back on breo ellipta outpatient
DVT prophylaxis; SCD
CODE STATUS; full code
Anticipated Discharge: Today
Objective Data
-
Labs:
Laboratory Results
01/13/24
05:45
WBC 2.6 L
Hgb 12.0 L
Hct 35.7 L
Plt Count 53 L
Sodium 136
Potassium 3.9
Chloride 106
Carbon Dioxide 27
BUN 23 H
Creatinine 1.5 H
Glucose 100 H
Calcium 8.7
Vital Signs:
Vital Signs
Temp Pulse Resp BP Pulse Ox
98 F 73 18 184/89 96
01/13/24 07:45 01/13/24 07:45 01/13/24 07:45 01/13/24 07:45 01/13/24 07:45
I&O
01/12/24 01/13/24 01/14/24
06:59 06:59 06:59
Intake Total 480 / 480 1320 / 1320
Output Total 900 / 900 1650 / 1650
Balance -420 / -420 -330 / -330
Review of Systems
-
All other systems: Reviewed and negative (Except as documented)
Physical Exam
-
General: Well Developed and No Apparent Distress
HEENT: Normocephalic, Atraumatic and Moist Mucous Membranes
Respiratory: Clear to Auscultation
Cardiac: Regular Rhythm and S1/S2; Negative Murmur, Rub or Gallop
GI: Soft, Nontender, Nondistended and Normal Bowel Sounds; Negative Organomegaly
Rectal: Deferred by Provider
Musculoskeletal: No Clubbing, No Cyanosis and No Edema
Skin: Warm
Neuro: Awake, Alert, Oriented and AO x 3
Psych: Calm
Data Reviewed
-
Labs: Labs Reviewed by me and Discussed with Physician
--- NOTE | 2024-01-13 09:52 | W.DCSUMMARY ---
Discharge Summary
Discharge Data
Date of Admission: 01/09/24
Date of Discharge: 01/13/24
-
Pending Results: No
Hospital Course
DISCHARGE DIAGNOSIS:
1. Upper GI bleed secondary to steroid use
2. Acute delirium
3. Sepsis secondary to UTI
4. Chronic thrombocytopenia
5. Asthma
6. Depression
BRIEF HOSPITAL COURSE: This is a 78-year-old male with past medical history of prior traumatic brain injury, chronic thrombocytopenia, BPH, mild cognitive impairment who presents to [facility] ED complaining of melena and vomiting black emesis. Patient
reports blood-tinged emesis 2 nights before coming into the ED. He notes that he had symptoms of URI 2 weeks ago and saw his primary care provider 12/26 who placed him on a course of oral prednisone 2 tabs twice daily for a total of 5 days. He
completed the course of prednisone a week after. On presentation to the ED, he was afebrile and normotensive.Crawford-Blatchford bleeding score of 4, hence he was admitted. Gastroenterology was consulted, and an abdominal x-ray was done given the
fact that he was hemodynamically stable with a normal hemoglobin and no further vomiting. Evaluation with an abdominal x-ray showed nonobstructive bowel gas pattern. Patient was placed on PPI IV and monitored for any new episode of vomiting or
diarrhea. He was transition from liquid diet to regular diet, and over the course of this hospital stay he had no new episodes.
One day after admission, patient began to show signs of confusion, and altered mental status. His white blood cell count level dropped down from 6.6 to 2.7. Urinalysis obtained indicated urinary tract infection, with cultures positive for
enterococci. The patient was initially started on IV ceftriaxone for the duration of his stay in the hospital, and will be transitioned to oral medications as an outpatient.
Chronic thrombocytopenia; he is been followed by hematology outpatient. Reviewed [facility] notes, and indicates thrombocytopenia may be due to his Nucala therapy
Asthma; he will be continued on his home medication regimen
Depression; he will be continued on escitalopram.
On the day of discharge, Bladder scan today with PVR of 285 which is higher than baseline. Discussed with patient's urologist. Plan is to initiate Flomax outpatient. (patient with history of orthostasis, although currently hypotensive). Close
urology follow-up with outpatient bladder scan at the end of this week.
temperature 98, BP; 146/76 pulse 73, O2 sat 96 on room air
On physical examination; patient is awake alert in no acute distress. S1-S2 present, regular rate regular rhythm, abdomen is soft and nontender with bowel sounds present, lungs are clear on auscultation bilaterally, extremities show no peripheral
edema.
Discharge Plan
-
Patient Disposition: Home (Routine Discharge)
Discharge Diagnosis/Procedures: Upper GI bleed secondary to steroid use
Acute delirium
Sepsis secondary to UTI
Chronic thrombocytopenia
Asthma
Depression
Condition: Good
Diet: 2 Gram Sodium
Activity: With assistance
Blood Work: BMP in one week
Referrals:
Jerome Pedro MD [Active] - in one week
France Osullivan MD [Family Provider] - in one week
Additional Discharge Medication Instructions: Flomax 0.4mg HS
Amoxicillin 500 mg TID for 5 days
Prescriptions:
New
tamsulosin [Flomax] 0.4 mg capsule
0.4 mg PO HS Qty: 10 0RF
amoxicillin 500 mg capsule
500 mg PO TID Qty: 15 0RF
Continued
albuterol sulfate 90 mcg/actuation Hfa Aerosol Inhaler
1 puff INHALATION R Q4HPRN PRN (Reason: sob)
escitalopram oxalate 20 mg Tablet
20 mg PO DAILY
fexofenadine 180 mg Tablet
180 mg PO DAILY PRN (Reason: allergies)
TheraTears 0.25 % Drops
1 drp BOTH EYES DAILYPRN PRN (Reason: dry eyes)
maltodextrin Powder
1 ea PO DAILYPRN PRN (Reason: constipation)
Rx Instructions:
01/09/2024, 1.5 tsp in 8 oz of water.
fluticasone furoate-vilanterol [Breo Ellipta] 100-25 mcg/dose Blister With Device
1 inh INHALATION R DAILY
Nucala 100 mg/mL Auto-Injector
0 mg SC QMONTH
Patient Comments:
01/09/2024, pt. and spouse unsure of dose. Their doctor is Dr. Mtz.
Discharge Orders:
Discharge Patient (As Directed); Ordered 01/13/24
Ordered By: Aline Ramirez
Discharge Date and Time
Discharge Date/Time: 01/13/24 14:16
Print Language: YORUBA
--- NOTE | 2024-01-13 10:16 | CM ---
Addendum entered by Rebecca Zendejas 01/13/24 13:52:
Patient and seen, IMM reviewed, signed, placed in chart.
Plan; home with , no needs.
Original Note:
Patient seen bedside, CM reviewed IMM with patient. Patient would like to wait for to come to hospital before signing IMM. CM will continue to follow for discharge planning needs.
Plan; home with , no needs.
[2024-01-13 11:08] VITALS: BP 141/68
--- NOTE | 2024-01-13 13:39 | W.PN.UPDATE ---
Update Note
Progress Note Update
Patient seen and examined
Discussed with resident
Discussed with nursing
Discussed with patient's spouse at the bedside
Discussed with patient primary urologist over the phone.
Impression/plan:
Presenting with concern for upper gastrointestinal hemorrhage with melena and heme positive stool.
No evidence for hematemesis
Stable hemoglobin with no recurrent CP
GI input appreciated. No clinical indication for urgent/inpatient workup
Continue PPI twice daily
UTI with Enterococcus faecalis.
Sepsis ruled out.
Suspect TME in the settings of acute infection resolved with mental status back to baseline
Likely complicated UTI in the settings of BPH.
Recent UroLift procedure
Transition to oral antibiotics/amoxicillin to complete additional 5 days of treatment as outpatient
Bladder scan today with PVR of 285 which is higher than baseline.
Discussed with urology. Plan is to initiate Flomax (patient with history of orthostasis, although currently hypotensive)
Close urology follow-up with outpatient bladder scan at the end of this week
CKD stage IIIa baseline creatinine in the baseline at 1.5
Chronic thrombocytopenia. Platelet count in the baseline
Mild cognitive disorder/depression.
Mental status at the baseline.
Disposition: Discharge home with close urology follow-up and completion of oral antibiotics for UTI. Monitor for recurrent GI symptoms. Continue PPI.
== END 2024-01-13 14:16 | disposition home or self-care (01) | DRG 377 ==
LOC: 4 EAST ACU 15:14
PROVIDERS: Internal Medicine; Nurse Practitioner Family; Physician Assistant; Student in an Organized Health Care Education/Training Program; ADMITTING PHYSICIAN Family Medicine; ATTENDING PHYSICIAN Internal Medicine; EMERGENCY PHYSICIAN Emergency Medicine; FAMILY PHYSICIAN Student in an Organized Health Care Education/Training Program; OTHER PHYSICIAN Internal Medicine
DX: K92.1 Melena (principal); G93.41 Metabolic encephalopathy; E87.1 Hypo-osmolality and hyponatremia; K86.2 Cyst of pancreas; N17.9 Acute kidney failure, unspecified; N39.0 Urinary tract infection, site not specified; D61.818 Other pancytopenia; D69.6 Thrombocytopenia, unspecified; R79.1 Abnormal coagulation profile; F32.A Depression, unspecified; G31.84 Mild cognitive impairment of uncertain or unknown etiology; J45.909 Unspecified asthma, uncomplicated; I71.43 Infrarenal abdominal aortic aneurysm, without rupture; N40.1 Benign prostatic hyperplasia with lower urinary tract symptoms; R97.20 Elevated prostate specific antigen [PSA]; M48.061 Spinal stenosis, lumbar region without neurogenic claudication; E86.1 Hypovolemia; T38.0X5A Adverse effect of glucocorticoids and synthetic analogues, initial encounter; Y92.9 Unspecified place or not applicable; N52.9 Male erectile dysfunction, unspecified; N18.31 Chronic kidney disease, stage 3a; B95.2 Enterococcus as the cause of diseases classified elsewhere; D75.89 Other specified diseases of blood and blood-forming organs; Z96.643 Presence of artificial hip joint, bilateral; Z80.0 Family history of malignant neoplasm of digestive organs; Z86.79 Personal history of other diseases of the circulatory system; Z87.820 Personal history of traumatic brain injury; Z11.52 Encounter for screening for COVID-19
CPT/HCPCS: 70450; 74019; 80048; 80053; 81003; 81015; 82248; 85014; 85018; 85025; 85027; 85610; 86850; 86900; 86901; 87040; 87077; 87086; 87186; 87502; 87811; 94640; 96374; 99284

== ENCOUNTER 2024-02-17 13:14 | Outpatient (RCR) | payer MEDICARE, SELFPAY ==
[2024-02-17 13:53] VITALS: BP 123/62
[2024-02-17] MEDS: NUCALA 1 MG SC (14:07)
== END 2024-02-18 08:02 | disposition home or self-care (01) ==
LOC: OID 13:14
PROVIDERS: ATTENDING PHYSICIAN Internal Medicine Critical Care Medicine; FAMILY PHYSICIAN Student in an Organized Health Care Education/Training Program
DX: J45.41 Moderate persistent asthma with (acute) exacerbation (principal); J45.40 Moderate persistent asthma, uncomplicated (principal); J45.901 Unspecified asthma with (acute) exacerbation; R06.02 Shortness of breath; J98.4 Other disorders of lung; R76.8 Other specified abnormal immunological findings in serum; J44.9 Chronic obstructive pulmonary disease, unspecified
CPT/HCPCS: 96372; J2182

== ENCOUNTER 2024-03-16 13:35 | Outpatient (RCR) | payer MEDICARE, SELFPAY ==
[2024-03-16 14:00] VITALS: BP 99/57
[2024-03-16] MEDS: NUCALA 1 MG SC (14:06)
== END 2024-03-17 08:47 | disposition home or self-care (01) ==
LOC: OID 13:35
PROVIDERS: ATTENDING PHYSICIAN Internal Medicine Critical Care Medicine; FAMILY PHYSICIAN Student in an Organized Health Care Education/Training Program
DX: J45.41 Moderate persistent asthma with (acute) exacerbation (principal)
CPT/HCPCS: 96372; J2182

== ENCOUNTER 2024-05-11 13:33 | Outpatient (RCR) | payer MEDICARE, SELFPAY ==
[2024-04-13 13:53] VITALS: BP 116/58
[2024-04-13] MEDS: NUCALA 1 MG SC (14:05)
[2024-05-11 13:38] VITALS: BP 170/83
[2024-05-11] MEDS: NUCALA 1 MG SC (13:49)
== END 2024-05-12 23:59 | disposition home or self-care (01) ==
LOC: OID 13:33
PROVIDERS: ATTENDING PHYSICIAN Internal Medicine Critical Care Medicine; FAMILY PHYSICIAN Student in an Organized Health Care Education/Training Program
DX: J45.41 Moderate persistent asthma with (acute) exacerbation (principal); J45.901 Unspecified asthma with (acute) exacerbation; R06.02 Shortness of breath; J98.4 Other disorders of lung; R76.8 Other specified abnormal immunological findings in serum; J44.9 Chronic obstructive pulmonary disease, unspecified
CPT/HCPCS: 96372; J2182

== ENCOUNTER 2024-06-04 13:35 | Outpatient (RCR) | payer MEDICARE, SELFPAY ==
[2024-06-04 13:53] VITALS: BP 117/53
[2024-06-04] MEDS: NUCALA 1 MG SC (14:05)
== END 2024-06-12 23:59 | disposition home or self-care (01) ==
LOC: OID 13:35
PROVIDERS: ATTENDING PHYSICIAN Internal Medicine Critical Care Medicine; FAMILY PHYSICIAN Student in an Organized Health Care Education/Training Program
DX: J45.41 Moderate persistent asthma with (acute) exacerbation (principal); J45.40 Moderate persistent asthma, uncomplicated (principal); J45.901 Unspecified asthma with (acute) exacerbation; R06.02 Shortness of breath; J98.4 Other disorders of lung; R76.8 Other specified abnormal immunological findings in serum; J44.9 Chronic obstructive pulmonary disease, unspecified
CPT/HCPCS: 96372; J2182

== ENCOUNTER 2024-06-29 16:54 | Emergency (ER) | payer MEDICARE, SELFPAY ==
[2024-06-29 17:07] VITALS: BP 163/85
--- NOTE | 2024-06-29 17:09 | ED.PDOC.TRB ---
ED Provider Triage
-
Patient seen by provider in Triage?: Seen in Triage
Attestation: A medical screening examination has been initiated by a qualified medical provider. Based on the assessment performed at this time, it has been determined that an emergent medical condition may exist and the patient has been informed
that further medical evaluation and possible additional diagnostic testing may be needed.
HPI: 79-year-old male presents for a worsening wound to the right medial lower leg, initial wound was suffered just over 1 month ago. He was initially treated with a course of doxycycline and topical mupirocin and according to this improved
the area. Over the past several days after the scab fell off the areas become increasingly red. The patient denies any pain but the states there is purulent discharge coming from the wound. No fevers
GENERAL: Alert , in no apparent distress
EYE: No visual abnormalities.
NECK: Trachea midline
ENT: No visible abnormalities.
LUNGS: No acute respiratory distress
NEUROLOGICAL: Alert and oriented
SKIN: Skin intact. No visible changes. Circumferential erythema to the right lower leg, there is a bandage in place overlying the patient's reported wound
MUSCULOSKELETAL: Moving extremities normally
PSYCH: Normal and appropriate interaction.
Assessment: Appears to be cellulitis/recurrent wound infection. Will obtain basic labs
This is a medical evaluation conducted in person to initiate diagnostic evaluation and provide initial therapeutics. Please see further documentation by the treating clinician.
[2024-06-29 17:25] LABS: % Basophils 0.4 % (0-2); % Eosinophils 1.3 % (0-6); % Immature Granulocytes 0.2 % (0-0.5); % Lymphocytes 16.5 % (20.5-51.1); % Monocytes 12.8 % (1.7-9.3); % Neutrophils 68.8 % (42.2-75.2); Absolute Eosinophils 0.1 10^3/uL (0-0.7); Absolute Lymphocytes 0.8 10^3/uL (1.2-3.4); Absolute Monocytes 0.6 10^3/uL (0.1-0.6); Absolute Neutrophils 3.2 10^3/uL (1.4-6.5); Hematocrit 38.9 % (39.0-52.0); Hemoglobin 12.9 g/dL (13.0-18.0); Mean Corp Hgb Conc. 33.2 g/dL (33.0-37.0); Mean Corpuscular Hgb 32.2 pg (27.0-31.0); Mean Platelet Volume 11.9 fL (7.4-10.4); Nucleated Red Blood Cells % 0 % (-); Platelet Count 78 10^3/uL (130-400); Red Blood Cell Count 4.01 10^6/uL (4.70-6.10); Red Cell Dist. Width 13.8 % (11.5-14.5); White Blood Cell Count 4.7 10^3/uL (4.8-10.8)
[2024-06-29 17:40] LABS: ALT (SGPT) 27 U/L (0-50); AST (SGOT) 31 U/L (17-59); Albumin 4.3 g/dl (3.5-5.0); Alkaline Phosphatase 115 U/L (38-126); Blood Urea Nitrogen 24 mg/dl (9-20); Calcium 9.5 mg/dl (8.4-10.2); Carbon Dioxide 23 mmol/L (22-30); Chloride 105 mmol/L (98-107); Glucose 91 mg/dl (70-99); Potassium 4.2 mmol/L (3.5-5.1); Sodium 142 mmol/L (135-145); Total Bilirubin 0.9 mg/dl (0.2-1.3); Total Protein 7.4 g/dl (6.3-8.2); eGFR 41.01
[2024-06-29 17:55] VITALS: BP 180/80; BMI 29.7
--- NOTE | 2024-06-29 19:46 | ED.GENMED ---
History of Present Illness
General
Chief Complaint: Skin Problem
Time Seen by Provider: 06/29/24 19:07
History of Present Illness
History of Present Illness:
79-year-old male with history of asthma presenting for nonhealing wound to the right lower extremity. Patient reports 1 month ago, he struck his calf region with lawn mowing equipment. He has since had a puncture wound with surrounding erythema.
He has been on cephalexin, Bactrim, and started on doxycycline 2 days ago. He does note some improvement after mupirocin cream. Denies significant pain, or drainage from the wound. Reports that the scab to the area came off today. Denies
numbness or tingling to the extremity. Denies fever, chest pain, difficulty breathing. Denies issues walking or additional acute medical complaint
Phy Exam
Physical Exam
Physical Exam:
General: Well-appearing, no clinical signs of dehydration, nontoxic and in no acute distress
HEENT: protecting airway
Neck: appears supple
CV: Normal heart rate, regular rhythm
Resp: No accessory muscle use, no increased work of breathing
Abd: Nondistended
Extremities: No deformities, no swelling, quarter size puncture wound to the distal right medial menjivar. Surrounding erythema, not completely circumferential. No significant tenderness or fluctuance. No active drainage from the puncture wound.
Distal sensation and pulses intact
Neuro: alert, no focal neurologic deficit
: deferred
Rectal: deferred
Psych: Normal affect
Skin: Intact
Course
Orders/Labs/Results
Orders:
Orders
06/29/24 17:16
Complete Blood Count/With Diff Urgent
Comprehensive Metabolic Panel Urgent
06/29/24 19:34
Tibia/Fibula, Right 2 View [CR Leg Tibia/fibula Right 2 Vw] Urgent
Comment:
Reason For Exam: wound medially, not healing
Abnormal Lab Results
06/29/24
17:16
WBC 4.7 L 10^3/uL
(4.8-10.8)
RBC 4.01 L 10^6/uL
(4.70-6.10)
Hgb 12.9 L g/dL
(13.0-18.0)
Hct 38.9 L %
(39.0-52.0)
MCV 97.0 H fL
(80.0-94.0)
MCH 32.2 H pg
(27.0-31.0)
Plt Count 78 L 10^3/uL
(130-400)
MPV 11.9 H fL
(7.4-10.4)
Absolute Lymphs (auto) 0.8 L 10^3/uL
(1.2-3.4)
Lymphocytes % 16.5 L %
(20.5-51.1)
Monocytes % 12.8 H %
(1.7-9.3)
BUN 24 H mg/dl
(9-20)
Creatinine 1.7 H mg/dL
(0.7-1.3)
06/29/24 17:16
06/29/24 17:16
Vital Signs
Initial and Last Documented VS:
Initial Vital Signs
Temp Pulse Resp BP Pulse Ox
98.1 F 66 20 163/85 98
06/29/24 17:07 06/29/24 17:07 06/29/24 17:07 06/29/24 17:07 06/29/24 17:07
Last Documented Vital Signs
Temp Pulse Resp BP Pulse Ox
98 F 65 18 180/80 98
06/29/24 17:55 06/29/24 17:55 06/29/24 17:55 06/29/24 17:55 06/29/24 17:55
MDM/Problems Addressed
MDM/Problems Addressed:
79-year-old male with history of asthma presenting for nonhealing puncture wound. Vital signs on significant for hypertension.
On exam patient is well-appearing, nontoxic, no acute distress. Patient does have a quarter size puncture wound distal right lower extremity. However, no neurovascular compromise. There is surrounding cellulitis. No palpation of any fluctuance
or concern for deep space infection or abscess. Patient has already been on Keflex and Bactrim without significant improvement. Does note some improvement after mupirocin cream, and recently started doxycycline a day ago. Screening laboratory
analysis obtained, no significant leukocytosis. Will obtain x-ray imaging.
21:40 -patient's x-ray without any osseous abnormality. At this time discussion had with patient regarding options of continued outpatient management with continued doxycycline and follow-up with podiatry versus wound care. Additional option of
inpatient IV antibiotics. Patient would prefer to go home with outpatient follow-up. Feel reasonable, hemodynamically stable. Wound appropriately dressed. Strict return precautions communicated to patient and at bedside who verbalized
understanding
*Critical Care Note
Total Time (30-74mins, 75-104mins- exclusive of procedures): Not Applicable
ED Attending Note
-
Portions of this chart may have been created with voice recognition software.� Occasional wrong word or��sound alike� substitutions may have occurred due to the inherent limitations of voice recognition software.
Discharge Plan
Departure
Prescriptions:
No Action
albuterol sulfate 90 mcg/actuation Hfa Aerosol Inhaler
1 puff INHALATION R Q4HPRN PRN (Reason: sob)
escitalopram oxalate 20 mg Tablet
20 mg PO DAILY
acetaminophen [Tylenol] 325 mg Tablet
650 mg PO Q6H PRN (Reason: pain)
TheraTears 0.25 % Drops
1 drp BOTH EYES DAILYPRN PRN (Reason: dry eyes)
fluticasone furoate-vilanterol [Breo Ellipta] 100-25 mcg/dose Blister With Device
1 inh INHALATION R DAILY
Nucala 100 mg/mL Auto-Injector
0 mg SC QMONTH
Patient Comments:
01/09/2024, pt. and spouse unsure of dose. Their doctor is Dr. Mtz.
Referrals:
France Osullivan MD [Family Provider] -
Interventions
Interventions:
*Risk Screen - Suicide Last Done: 06/29/24 17:07
*General Assessment Last Done: 06/29/24 17:07
*Neglect/Abuse Screening Last Done: 06/29/24 17:07
ED- Fall Risk Assessment Last Done: 06/29/24 19:51
ED-Skin Assessment Last Done: 06/29/24 18:04
Discharge Date and Time
Print Language: [id number]
== END 2024-06-29 21:57 | disposition home or self-care (01) ==
LOC: EMR 16:54
PROVIDERS: Physician Assistant; EMERGENCY PHYSICIAN Student in an Organized Health Care Education/Training Program; FAMILY PHYSICIAN Student in an Organized Health Care Education/Training Program
DX: S81.831A Puncture wound without foreign body, right lower leg, initial encounter (principal); W22.8XXA Striking against or struck by other objects, initial encounter; J45.909 Unspecified asthma, uncomplicated; Z88.8 Allergy status to other drugs, medicaments and biological substances
CPT/HCPCS: 99283; 73590; 80053; 85025

== ENCOUNTER 2024-07-02 13:41 | Outpatient (RCR) | payer MEDICARE, SELFPAY ==
[2024-07-02 13:53] VITALS: BP 164/79
[2024-07-02] MEDS: NUCALA 1 MG SC (13:59)
== END 2024-07-05 10:13 | disposition home or self-care (01) ==
LOC: OID 13:41
PROVIDERS: ATTENDING PHYSICIAN Internal Medicine Critical Care Medicine; FAMILY PHYSICIAN Student in an Organized Health Care Education/Training Program
DX: J45.41 Moderate persistent asthma with (acute) exacerbation (principal); J45.901 Unspecified asthma with (acute) exacerbation; R06.02 Shortness of breath; J98.4 Other disorders of lung; R76.8 Other specified abnormal immunological findings in serum; J44.9 Chronic obstructive pulmonary disease, unspecified
CPT/HCPCS: 96372; J2182

== ENCOUNTER → 2024-07-06 08:07 | Outpatient (REF) | payer MEDICARE, SELFPAY | LOC: WOUND 08:07 | PROVIDERS: ATTENDING PHYSICIAN Surgery; FAMILY PHYSICIAN Student in an Organized Health Care Education/Training Program | DX: L97.212 Non-pressure chronic ulcer of right calf with fat layer exposed (principal); I87.2 Venous insufficiency (chronic) (peripheral); I73.9 Peripheral vascular disease, unspecified | CPT/HCPCS: 11042; 99204 ==

== ENCOUNTER → 2024-07-20 09:25 | Outpatient (REF) | payer MEDICARE, SELFPAY | LOC: WOUND 09:25 | PROVIDERS: ATTENDING PHYSICIAN Surgery; FAMILY PHYSICIAN Student in an Organized Health Care Education/Training Program | DX: L97.212 Non-pressure chronic ulcer of right calf with fat layer exposed (principal); I87.2 Venous insufficiency (chronic) (peripheral); I73.9 Peripheral vascular disease, unspecified | CPT/HCPCS: 11042 ==

== ENCOUNTER → 2024-07-27 10:33 | Outpatient (REF) | payer MEDICARE, SELFPAY | LOC: WOUND 10:33 | PROVIDERS: ATTENDING PHYSICIAN Surgery; FAMILY PHYSICIAN Student in an Organized Health Care Education/Training Program | DX: L97.212 Non-pressure chronic ulcer of right calf with fat layer exposed (principal); I73.9 Peripheral vascular disease, unspecified | CPT/HCPCS: 11042 ==

== ENCOUNTER 2024-07-30 13:42 | Outpatient (RCR) | payer MEDICARE, SELFPAY ==
[2024-07-30 13:49] VITALS: BP 168/90
[2024-07-30] MEDS: NUCALA 1 MG SC (14:01)
== END 2024-08-02 08:30 | disposition home or self-care (01) ==
LOC: OID 13:42
PROVIDERS: ATTENDING PHYSICIAN Internal Medicine Critical Care Medicine; FAMILY PHYSICIAN Student in an Organized Health Care Education/Training Program
DX: J45.41 Moderate persistent asthma with (acute) exacerbation (principal); J45.901 Unspecified asthma with (acute) exacerbation; R06.02 Shortness of breath; J98.4 Other disorders of lung; R76.8 Other specified abnormal immunological findings in serum; J44.9 Chronic obstructive pulmonary disease, unspecified
CPT/HCPCS: 96372; J2182

== ENCOUNTER → 2024-08-03 11:26 | Outpatient (REF) | payer MEDICARE, SELFPAY | LOC: WOUND 11:26 | PROVIDERS: ATTENDING PHYSICIAN Surgery; FAMILY PHYSICIAN Student in an Organized Health Care Education/Training Program | DX: L97.212 Non-pressure chronic ulcer of right calf with fat layer exposed (principal); I87.2 Venous insufficiency (chronic) (peripheral); I73.9 Peripheral vascular disease, unspecified | CPT/HCPCS: 99212 ==

== ENCOUNTER → 2024-08-26 13:11 | Outpatient (REF) | payer MEDICARE, SELFPAY | LOC: RAD 13:11 | PROVIDERS: ATTENDING PHYSICIAN Surgery; FAMILY PHYSICIAN Student in an Organized Health Care Education/Training Program | DX: L97.212 Non-pressure chronic ulcer of right calf with fat layer exposed (principal); I73.9 Peripheral vascular disease, unspecified; I87.2 Venous insufficiency (chronic) (peripheral) | CPT/HCPCS: 93922; 93925; 93971 ==

== ENCOUNTER 2024-08-31 11:31 | Outpatient (RCR) | payer MEDICARE, SELFPAY ==
[2024-08-31 11:50] VITALS: BP 133/54
[2024-08-31] MEDS: NUCALA 1 MG SC (12:02)
== END 2024-09-11 23:59 | disposition home or self-care (01) ==
LOC: OID 11:31
PROVIDERS: ATTENDING PHYSICIAN Internal Medicine Critical Care Medicine; FAMILY PHYSICIAN Student in an Organized Health Care Education/Training Program
DX: J45.41 Moderate persistent asthma with (acute) exacerbation (principal); J45.901 Unspecified asthma with (acute) exacerbation; R06.02 Shortness of breath; J98.4 Other disorders of lung; R76.8 Other specified abnormal immunological findings in serum; J44.9 Chronic obstructive pulmonary disease, unspecified
CPT/HCPCS: 96372; J2182

== ENCOUNTER 2024-09-28 11:30 | Outpatient (RCR) | payer MEDICARE, SELFPAY ==
[2024-09-28 11:35] VITALS: BP 127/47
[2024-09-28] MEDS: NUCALA 1 MG SC (11:45)
== END 2024-09-29 09:01 | disposition home or self-care (01) ==
LOC: OID 11:30
PROVIDERS: ATTENDING PHYSICIAN Internal Medicine Critical Care Medicine; FAMILY PHYSICIAN Student in an Organized Health Care Education/Training Program
DX: J45.41 Moderate persistent asthma with (acute) exacerbation (principal); J45.901 Unspecified asthma with (acute) exacerbation; R06.02 Shortness of breath; J98.4 Other disorders of lung; R76.8 Other specified abnormal immunological findings in serum; J44.9 Chronic obstructive pulmonary disease, unspecified
CPT/HCPCS: 96372; J2182

== ENCOUNTER 2024-10-26 11:31 | Outpatient (RCR) | payer MEDICARE, SELFPAY ==
[2024-10-26 11:40] VITALS: BP 129/57
[2024-10-26] MEDS: NUCALA 1 MG SC (11:45)
== END 2024-10-27 09:16 | disposition home or self-care (01) ==
LOC: OID 11:31
PROVIDERS: ATTENDING PHYSICIAN Internal Medicine Critical Care Medicine; FAMILY PHYSICIAN Student in an Organized Health Care Education/Training Program
DX: J45.41 Moderate persistent asthma with (acute) exacerbation (principal); J45.901 Unspecified asthma with (acute) exacerbation; R06.02 Shortness of breath; J98.4 Other disorders of lung; R76.8 Other specified abnormal immunological findings in serum; J44.9 Chronic obstructive pulmonary disease, unspecified
CPT/HCPCS: 96372; J2182

== ENCOUNTER 2024-11-23 11:25 | Outpatient (RCR) | payer MEDICARE, SELFPAY ==
[2024-11-23 11:38] VITALS: BP 130/65
[2024-11-23] MEDS: NUCALA 1 MG SC (11:47)
== END 2024-12-10 23:59 | disposition home or self-care (01) ==
LOC: OID 11:25
PROVIDERS: ATTENDING PHYSICIAN Internal Medicine Critical Care Medicine; FAMILY PHYSICIAN Student in an Organized Health Care Education/Training Program
DX: J45.41 Moderate persistent asthma with (acute) exacerbation (principal); J45.901 Unspecified asthma with (acute) exacerbation; R06.02 Shortness of breath; J98.4 Other disorders of lung; R76.8 Other specified abnormal immunological findings in serum; J44.9 Chronic obstructive pulmonary disease, unspecified
CPT/HCPCS: 96372; J2182

== ENCOUNTER 2024-12-21 11:30 | Outpatient (RCR) | payer MEDICARE, SELFPAY ==
[2024-12-21 11:43] VITALS: BP 140/63
[2024-12-21] MEDS: NUCALA 1 MG SC (11:48)
== END 2024-12-22 08:43 | disposition home or self-care (01) ==
LOC: OID 11:30
PROVIDERS: ATTENDING PHYSICIAN Internal Medicine Critical Care Medicine; FAMILY PHYSICIAN Student in an Organized Health Care Education/Training Program
DX: J45.41 Moderate persistent asthma with (acute) exacerbation (principal); J45.901 Unspecified asthma with (acute) exacerbation; R06.02 Shortness of breath; J98.4 Other disorders of lung; R76.8 Other specified abnormal immunological findings in serum; J44.9 Chronic obstructive pulmonary disease, unspecified
CPT/HCPCS: 96372; J2182

== ENCOUNTER → 2025-01-04 09:14 | Outpatient (REF) | payer MEDICARE, SELFPAY | LOC: HWRAD 09:14 | PROVIDERS: ATTENDING PHYSICIAN Internal Medicine Hematology & Oncology; FAMILY PHYSICIAN Student in an Organized Health Care Education/Training Program | DX: D69.6 Thrombocytopenia, unspecified (principal) | CPT/HCPCS: 76705 ==

== ENCOUNTER 2025-01-18 11:19 | Outpatient (RCR) | payer MEDICARE, SELFPAY ==
[2025-01-18 11:30] VITALS: BP 147/80
[2025-01-18] MEDS: NUCALA 1 MG SC (11:47)
== END 2025-01-19 09:24 | disposition home or self-care (01) ==
LOC: OID 11:19
PROVIDERS: ATTENDING PHYSICIAN Internal Medicine Critical Care Medicine; FAMILY PHYSICIAN Student in an Organized Health Care Education/Training Program
DX: J45.901 Unspecified asthma with (acute) exacerbation (principal); R06.02 Shortness of breath; J98.4 Other disorders of lung; R76.8 Other specified abnormal immunological findings in serum; J44.9 Chronic obstructive pulmonary disease, unspecified
CPT/HCPCS: 96372; J2182

== ENCOUNTER → 2025-01-22 07:23 | Outpatient (REF) | payer MEDICARE, SELFPAY | LOC: MRI 3T 07:23 | PROVIDERS: ATTENDING PHYSICIAN Psychiatry & Neurology Neurology; FAMILY PHYSICIAN Student in an Organized Health Care Education/Training Program | DX: R41.3 Other amnesia (principal) | CPT/HCPCS: 70551 ==

== ENCOUNTER 2025-02-15 11:25 | Outpatient (RCR) | payer MEDICARE, SELFPAY ==
[2025-02-15 11:38] VITALS: BP 117/59
[2025-02-15] MEDS: NUCALA 1 MG SC (11:45)
== END 2025-02-16 08:53 | disposition home or self-care (01) ==
LOC: OID 11:25
PROVIDERS: ATTENDING PHYSICIAN Internal Medicine Critical Care Medicine; FAMILY PHYSICIAN Student in an Organized Health Care Education/Training Program
DX: J45.41 Moderate persistent asthma with (acute) exacerbation (principal); J45.901 Unspecified asthma with (acute) exacerbation; R06.02 Shortness of breath; J98.4 Other disorders of lung; R76.8 Other specified abnormal immunological findings in serum; J44.9 Chronic obstructive pulmonary disease, unspecified
CPT/HCPCS: 96372; J2182

== ENCOUNTER → 2025-02-23 09:16 | Outpatient (REF) | payer MEDICARE, SELFPAY | LOC: MRI 09:16 | PROVIDERS: ATTENDING PHYSICIAN Internal Medicine Gastroenterology; FAMILY PHYSICIAN Student in an Organized Health Care Education/Training Program | DX: K86.2 Cyst of pancreas (principal) | CPT/HCPCS: 74183; A9575 ==

== ENCOUNTER 2025-03-15 11:38 | Outpatient (RCR) | payer MEDICARE, SELFPAY ==
[2025-03-15 11:43] VITALS: BP 144/69
[2025-03-15] MEDS: NUCALA 1 MG SC (11:55)
== END 2025-03-16 10:34 | disposition home or self-care (01) ==
LOC: OID 11:38
PROVIDERS: ATTENDING PHYSICIAN Internal Medicine Critical Care Medicine; FAMILY PHYSICIAN Student in an Organized Health Care Education/Training Program
DX: J45.40 Moderate persistent asthma, uncomplicated (principal); R06.02 Shortness of breath; J98.4 Other disorders of lung; R76.8 Other specified abnormal immunological findings in serum; J44.9 Chronic obstructive pulmonary disease, unspecified
CPT/HCPCS: 96372; J2182

== ENCOUNTER 2025-05-10 11:36 | Outpatient (RCR) | payer MEDICARE, SELFPAY ==
[2025-04-12 11:58] VITALS: BP 149/71
[2025-04-12] MEDS: NUCALA 1 MG SC (12:03)
[2025-05-10 11:35] VITALS: BP 125/63
[2025-05-10] MEDS: NUCALA 1 MG SC (11:53)
== END 2025-05-12 23:59 | disposition home or self-care (01) ==
LOC: OID 11:36
PROVIDERS: ATTENDING PHYSICIAN Internal Medicine Critical Care Medicine; FAMILY PHYSICIAN Student in an Organized Health Care Education/Training Program
DX: J45.41 Moderate persistent asthma with (acute) exacerbation (principal); J45.901 Unspecified asthma with (acute) exacerbation; R06.02 Shortness of breath; J98.4 Other disorders of lung; R76.8 Other specified abnormal immunological findings in serum; J44.9 Chronic obstructive pulmonary disease, unspecified; R94.2 Abnormal results of pulmonary function studies
CPT/HCPCS: 96372; J2182

== ENCOUNTER 2025-06-07 11:23 | Outpatient (RCR) | payer MEDICARE, SELFPAY ==
[2025-06-07 12:01] VITALS: BP 147/75
[2025-06-07] MEDS: NUCALA 1 MG SC (12:11)
== END 2025-06-08 10:17 | disposition home or self-care (01) ==
LOC: OID 11:23
PROVIDERS: ATTENDING PHYSICIAN Internal Medicine Critical Care Medicine; FAMILY PHYSICIAN Student in an Organized Health Care Education/Training Program
DX: J45.41 Moderate persistent asthma with (acute) exacerbation (principal); J45.901 Unspecified asthma with (acute) exacerbation; R06.02 Shortness of breath; J98.4 Other disorders of lung; R76.8 Other specified abnormal immunological findings in serum; J44.9 Chronic obstructive pulmonary disease, unspecified; R94.2 Abnormal results of pulmonary function studies
CPT/HCPCS: 96372; J2182

== ENCOUNTER 2025-07-05 11:28 | Outpatient (RCR) | payer MEDICARE, SELFPAY ==
[2025-07-05 11:39] VITALS: BP 127/73
[2025-07-05] MEDS: NUCALA 1 MG SC (11:55)
== END 2025-07-06 09:17 | disposition home or self-care (01) ==
LOC: OID 11:28
PROVIDERS: ATTENDING PHYSICIAN Internal Medicine Critical Care Medicine; FAMILY PHYSICIAN Student in an Organized Health Care Education/Training Program
DX: J45.40 Moderate persistent asthma, uncomplicated (principal); J45.901 Unspecified asthma with (acute) exacerbation; R06.02 Shortness of breath; J98.4 Other disorders of lung; R76.8 Other specified abnormal immunological findings in serum; J44.9 Chronic obstructive pulmonary disease, unspecified; R94.2 Abnormal results of pulmonary function studies
CPT/HCPCS: 96372; J2182

== ENCOUNTER 2025-08-02 11:30 | Outpatient (RCR) | payer MEDICARE, SELFPAY ==
[2025-08-02 11:40] VITALS: BP 127/74
[2025-08-02] MEDS: NUCALA 1 MG SC (11:59)
== END 2025-08-03 08:27 | disposition home or self-care (01) ==
LOC: OID 11:30
PROVIDERS: ATTENDING PHYSICIAN Internal Medicine Critical Care Medicine; FAMILY PHYSICIAN Student in an Organized Health Care Education/Training Program
DX: J45.41 Moderate persistent asthma with (acute) exacerbation (principal); J45.901 Unspecified asthma with (acute) exacerbation; R06.02 Shortness of breath; J98.4 Other disorders of lung; J44.9 Chronic obstructive pulmonary disease, unspecified; R94.2 Abnormal results of pulmonary function studies
CPT/HCPCS: 96372; J2182

== ENCOUNTER 2025-08-30 11:21 | Outpatient (RCR) | payer MEDICARE, SELFPAY ==
[2025-08-30 11:33] VITALS: BP 146/62
[2025-08-30] MEDS: NUCALA 1 MG SC (11:40)
== END 2025-08-31 09:17 | disposition home or self-care (01) ==
LOC: OID 11:21
PROVIDERS: ATTENDING PHYSICIAN Internal Medicine Critical Care Medicine; FAMILY PHYSICIAN Student in an Organized Health Care Education/Training Program
DX: J45.41 Moderate persistent asthma with (acute) exacerbation (principal); J45.901 Unspecified asthma with (acute) exacerbation; R06.02 Shortness of breath; J98.4 Other disorders of lung; J44.9 Chronic obstructive pulmonary disease, unspecified; R94.2 Abnormal results of pulmonary function studies; Z87.891 Personal history of nicotine dependence
CPT/HCPCS: 96372; J2182

== ENCOUNTER 2025-09-27 11:20 | Outpatient (RCR) | payer MEDICARE, SELFPAY ==
[2025-09-27 11:25] VITALS: BP 153/73
[2025-09-27] MEDS: NUCALA 1 MG SC (11:47)
== END 2025-09-28 09:23 | disposition home or self-care (01) ==
LOC: OID 11:20
PROVIDERS: ATTENDING PHYSICIAN Internal Medicine Critical Care Medicine; FAMILY PHYSICIAN Student in an Organized Health Care Education/Training Program
DX: J45.41 Moderate persistent asthma with (acute) exacerbation (principal); J45.901 Unspecified asthma with (acute) exacerbation; R06.02 Shortness of breath; J98.4 Other disorders of lung; J44.9 Chronic obstructive pulmonary disease, unspecified; R94.2 Abnormal results of pulmonary function studies
CPT/HCPCS: 96372; J2182

== ENCOUNTER → 2025-10-12 08:57 | Outpatient (REF) | payer MEDICARE, SELFPAY | LOC: MRI 3T 08:57 | PROVIDERS: ATTENDING PHYSICIAN Student in an Organized Health Care Education/Training Program | DX: M54.59 Other low back pain (principal); R26.81 Unsteadiness on feet | CPT/HCPCS: 72148 ==